=== PATIENT | male | born 1970 | race Caucasian/White ===

== ENCOUNTER 2018-03-14 03:25 | Emergency (ER) | payer OTHER ==
[~2018-03-14] VITALS: Ht 170.2 cm; Wt 77.1 kg
[~2018-03-14 03:25] MED LIST: ACET-2869 PO; CITA40TA13 PO; IBUP-2213 PO; OMEP20TC12 PO; ONDA4ODT1 PO; PANT40EC PO
[2018-03-14 03:34] VITALS: BP 112/66
--- NOTE | 2018-03-14 03:40 | NUR ---
TO BED # 5 AMBULATORY, REPORT GIVEN TO BRYAN [place].
--- NOTE | 2018-03-14 03:43 | NUR ---
REPORTED TO [place] AND SPOKEN TO [place]. [place] PD WILL COME AND SEE THE PATIENT.
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
--- NOTE | 2018-03-14 04:00 | NUR ---
[place] [employer] AT BEDSIDE
--- NOTE | 2018-03-14 04:03 | NUR ---
Dr. Dueñas evaluating patient at bedside.
[2018-03-14] MEDS ORDERED: LIDOCAINE/EPI MPF 2%1:200000 10 ML VIAL INJ ONE (04:45)
--- NOTE | 2018-03-14 05:12 | NUR ---
XRAY AT BEDSIDE. PT SENT TO CT VIA BED AAOX4 AT THIS TIME
--- NOTE | 2018-03-14 05:30 | NUR ---
PT BACK FROM CT TO ER BED 5 AAOX4
[2018-03-14] MEDS ORDERED: LIDOCAINE/EPI 2% 1:100000 20 ML VIAL INJ ONE (05:42)
--- NOTE | 2018-03-14 06:45 | NUR ---
Patient discharged with v/s stable. Written and verbal after care instructions given and explained. Patient alert, oriented and verbalized understanding of instructions. Ambulatory with steady gait. All questions addressed prior to discharge. ID band removed. Patient advised to follow up with PMD. Rx of ACETAMINOPHEN 500MG, BACITRACIN 500UNIT given. Patient educated on indication of medication including possible reaction and side effects. Opportunity to ask questions provided and answered.
[2018-03-14 06:46] VITALS: BP 123/42
== END 2018-03-14 06:45 | disposition home or self-care (01) ==
LOC: MED 03:25
DX: S01.01XA Laceration without foreign body of scalp, initial encounter (principal); S09.8XXA Other specified injuries of head, initial encounter; Y08.89XA Assault by other specified means, initial encounter; Y93.89 Activity, other specified; Y99.8 Other external cause status; Y92.512 Supermarket, store or market as the place of occurrence of the external cause
CPT/HCPCS: 12002; 70450; 99284; J2001

== ENCOUNTER 2018-03-16 13:09 | Emergency (ER) | payer OTHER ==
[~2018-03-16] VITALS: Ht 170.2 cm; Wt 77.1 kg
--- NOTE | 2018-03-16 13:09 | NUR ---
Patient BIBA BLS, transferred to bed 8. RN evaluating patient at bedside.
[2018-03-16 13:11] VITALS: BP 129/88
--- NOTE | 2018-03-16 13:15 | NUR ---
ASSUMED TEMPORARY CARE OF PT AT THIS TIME FOR PRIMARY RN WHO IS ON 30 MIN. BREAK. C/O SUDDEN ONSET LEFT UPPER CP AND ROSARIO X 1 HOUR. NO SOB. HEAVY ETOH TODAY. AAOX4; LUNGS CLEAR BL; HR EVEN AND REGULAR; PATIENT STATES PAIN OF 10/10; VSS; PATIENT POSITIONED FOR COMFORT; HOB ELEVATED; BEDRAILS UP X2; BED DOWN. ER MD MADE AWARE OF PT STATUS. WILL CONTINUE TO MONITOR.
[2018-03-16] MEDS ORDERED: NACL 0.9% 1,000 ML IV ONE (13:35)
[2018-03-16] MEDS ORDERED: MULTIVITAMIN-12 10 ML, THIAMINE 100 MG, MAGNESIUM SULFATE 50% 2,000 MG, FOLIC ACID 5 MG... IV ONE ×5 (13:35)
--- NOTE | 2018-03-16 13:51 | NUR ---
LAB AT PT BEDSIDE
--- NOTE | 2018-03-16 13:57 | NUR ---
roof technician at bedside.
[2018-03-16 13:58] LABS: HEMOGLOBIN 13.7 g/dL (12.0-18.0); MEAN CORPUSCULAR HEMOGLOBIN 31 pg (27-31); NEUTROPHILS # (AUTO) 4.1 K/uL (1.8-7.7)
[2018-03-16 14:11] LABS: ALBUMIN 3.7 g/dL (3.4-5.0); ANION GAP 15.3 (8-16); CARBON DIOXIDE 27.4 mmol/L (21-32); CREATININE 0.8 mg/dL (0.7-1.3); POTASSIUM 3.7 mmol/L (3.5-5.1); TOTAL BILIRUBIN 0.6 mg/dL (0.0-1.0)
[2018-03-16 14:12] LABS: BASOPHILS % (AUTO) 0.5 % (0.0-2.0); EOSINOPHILS % (AUTO) 0.8 % (0.0-4.0); HEMATOCRIT 39.3 % (36-52); LYMPHOCYTES # (AUTO) 0.7 K/uL (2.0-11.5); LYMPHOCYTES % (AUTO) 13.8 % (20.5-51.1); MEAN CORPUSCULAR HGB CONC 35 g/dL (33-37); MEAN CORPUSCULAR VOLUME 89.2 fL (80-94); MONOCYTES # (AUTO) 0.5 K/uL (0.8-1.0); MONOCYTES % (AUTO) 8.5 % (1.7-9.3); NEUTROPHILS % (AUTO) 76.4 % (42.2-75.2); PLATELET COUNT (AUTO) 133 K/uL (140-450); RED BLOOD CELL COUNT(AUTO) 4.41 MIL/uL (4.20-6.10); RED CELL DISTRIBUTION WIDTH 13.4 % (11.6-13.7); WHITE BLOOD COUNT (AUTO) 5.3 K/uL (4.8-10.8)
--- NOTE | 2018-03-16 14:14 | NUR ---
Patient appears to be resting comfortably in bed. Vital Signs within normal limits. Respirations even and unlabored.
--- NOTE | 2018-03-16 15:25 | NUR ---
URINE COLLECTED FROM PT
--- NOTE | 2018-03-16 15:26 | NUR ---
CALL LAB FOR URINE HAND GRINDER
--- NOTE | 2018-03-16 15:33 | NUR ---
PT TAKEN TO CT
[2018-03-16 15:35] LABS: APPEARANCE,URINE CLEAR (CLEAR); BILIRUBIN,URINE NEGATIVE (NEGATIVE); BLOOD, URINE NEGATIVE (NEGATIVE); COLOR,URINE YELLOW (YELLOW); LEUKOCYTE ESTERASE ,URINE NEGATIVE (NEGATIVE); NITRITE, URINE NEGATIVE (NEGATIVE); UGLUCOSE NEGATIVE (NEGATIVE)
[2018-03-16 15:42] LABS: BARBITURATE, URINE NEG. ng/ml (NEG <=200); BENZODIAZEPINE, URINE NEG. ng/mL (NEG <=200); CANNABINOID, URINE NEG. ng/mL (NEG <=50); COCAINE, URINE NEG. ng/mL (NEG <=300); OPIATE, URINE NEG. ng/mL (NEG <=2000); PHENCYCLIDINE SCREEN,URINE NEG. ng/mL (NEG <=25)
--- NOTE | 2018-03-16 15:45 | NUR ---
PT BACK FROM CT
[2018-03-16 19:18] VITALS: BP 128/86
== END 2018-03-16 19:18 | disposition home or self-care (01) ==
LOC: MED 13:09
DX: S20.212A Contusion of left front wall of thorax, initial encounter (principal); Y08.89XA Assault by other specified means, initial encounter; Y93.89 Activity, other specified; Y99.8 Other external cause status; Y92.89 Other specified places as the place of occurrence of the external cause
CPT/HCPCS: 36415; 71045; 71250; 80053; 80305; 81003; 83735; 84484; 85025; 93005; 96365; 96366; 99285; A9153; G0482; J3411; J3475; J3490; J7030

== ENCOUNTER 2019-09-28 23:46 | Emergency (ER) | payer OTHER ==
[~2019-09-28] VITALS: Ht 170.2 cm; Wt 81.6 kg
[~2019-09-28 23:46] MED LIST changes: -ACET-2869 PO; +HYDR-5122 PO; +ONDA-24 PO; -ONDA4ODT1 PO
[2019-09-28 23:50] VITALS: BP 123/80
[2019-09-29] MEDS: LORazepam 2 MG/ML VIAL IVP ONE (00:20)
[2019-09-29] MEDS: NACL 0.9% 1,000 ML IV ONE (00:20)
[2019-09-29 00:42] LABS: BASOPHILS % (AUTO) 0.2 % (0.0-2.0); EOSINOPHILS % (AUTO) 0.4 % (0.0-4.0); HEMATOCRIT 51.1 % (36-52); HEMOGLOBIN 17.3 g/dL (12.0-18.0); LYMPHOCYTES # (AUTO) 1.1 K/uL (2.0-11.5); LYMPHOCYTES % (AUTO) 13.6 % (20.5-51.1); MEAN CORPUSCULAR HEMOGLOBIN 31 pg (27-31); MEAN CORPUSCULAR HGB CONC 34 g/dL (33-37); MEAN CORPUSCULAR VOLUME 91.8 fL (80-94); MONOCYTES # (AUTO) 0.6 K/uL (0.8-1.0); MONOCYTES % (AUTO) 7.4 % (1.7-9.3); NEUTROPHILS # (AUTO) 6.6 K/uL (1.8-7.7); NEUTROPHILS % (AUTO) 78.4 % (42.2-75.2); PLATELET COUNT (AUTO) 194 K/uL (140-450); RED BLOOD CELL COUNT(AUTO) 5.57 MIL/uL (4.20-6.10); RED CELL DISTRIBUTION WIDTH 13.2 % (11.6-13.7); WHITE BLOOD COUNT (AUTO) 8.4 K/uL (4.8-10.8)
[2019-09-29 01:04] LABS: ALBUMIN 4.2 g/dL (3.4-5.0); ANION GAP 14.7 (8-16); ASPARTATE AMINOTRANSFERASE 19 U/L (15-37); CARBON DIOXIDE 26.5 mmol/L (21-32); CHLORIDE 106 mmol/L (98-107); CREATININE 1.2 mg/dL (0.7-1.3); GFR ARICAN-AMERICAN 83 mL/min (>90); GLUCOSE 119 mg/dL (74-106); POTASSIUM 3.2 mmol/L (3.5-5.1); SODIUM SERUM 144 mmol/L (136-145); TOTAL BILIRUBIN 0.9 mg/dL (0.0-1.0); UREA NITROGEN, BLOOD 12 mg/dL (7-18)
[2019-09-29 01:08] LABS: ACETAMINOPHEN < 0.5 ug/ml (10-30); SALICYLATE < 2.8 mg/dL (2.8-20.0)
[2019-09-29] MEDS: POTASSIUM CHLORIDE 10 MEQ TABER PO ONE (02:39)
[2019-09-29 02:54] VITALS: BP 120/84
== END 2019-09-29 02:54 | disposition home or self-care (01) ==
LOC: MED 23:46
DX: E87.6 Hypokalemia (principal); F15.10 Other stimulant abuse, uncomplicated; Z79.899 Other long term (current) drug therapy
CPT/HCPCS: 36415; 80053; 85025; 96361; 96374; 96375; 99283; G0480; G0482; J2060; J7030

== ENCOUNTER 2021-01-02 13:40 | Emergency (ER) | payer OTHER ==
[~2021-01-02] VITALS: Ht 170.2 cm; Wt 86.2 kg
[2021-01-02 13:44] VITALS: BP 119/81
--- NOTE | 2021-01-02 13:48 | NUR ---
PT AMBULATED TO ER BED 4 WITH A STEADY GAIT.
--- NOTE | 2021-01-02 13:52 | NUR ---
DR. MICHELLE AT PT BEDSIDE FOR FURTHER EVALUATION.
[2021-01-02] MEDS ORDERED: DICYCLOMINE HCL LIQUID 20 MG, ALUMINUM HYD/MAG/SIMETHICONE 30 ML, LIDOCAINE VISCOUS 2% ... PO ONE ×3 (13:55)
--- NOTE | 2021-01-02 14:00 | NUR ---
50 Y/O MALE C/O ABDOMINAL PAIN 03/02 DESCRIBES JOELLE THROUGHOUT ABDOMEN WITH +N/V X3 DAYS. PT DENIES DIARRHEA/CONSTIPATION. PT DENIES TAKING ANYTHING FOR PAIN. ABD IS SOFT, FLAT, NON-TENDER TO PALPATION, BOWEL SOUNDS ACTIVE X4. PMH:DEPRESSION NKA
[2021-01-02] MEDS ORDERED: PANT40EC PO (14:01)
[2021-01-02] MEDS ORDERED: LIDOCAINE VISCOUS 2% 20 ML UDC ONE (14:06)
[2021-01-02] MEDS ORDERED: DICYCLOMINE HCL LIQUID 10 MG/5 ML UDC ONE (14:07)
[2021-01-02] MEDS ORDERED: ALUMINUM HYD/MAG/SIMETHICONE 30 ML UDC ONE (14:07)
[2021-01-02 14:19] LABS: BASOPHILS % (AUTO) 0.2 % (0.0-2.0); EOSINOPHILS # (AUTO) 0.1 K/uL (0-0.4); EOSINOPHILS % (AUTO) 1.1 % (0.0-4.0); HEMATOCRIT 47.4 % (36-52); HEMOGLOBIN 16.2 g/dL (12.0-18.0); LYMPHOCYTES # (AUTO) 1.4 K/uL (2.0-11.5); LYMPHOCYTES % (AUTO) 23.2 % (20.5-51.1); MEAN CORPUSCULAR HEMOGLOBIN 31 pg (27-31); MEAN CORPUSCULAR HGB CONC 34 g/dL (33-37); MEAN CORPUSCULAR VOLUME 91.6 fL (80-94); MONOCYTES # (AUTO) 0.5 K/uL (0.8-1.0); MONOCYTES % (AUTO) 8.2 % (1.7-9.3); NEUTROPHILS # (AUTO) 4.2 K/uL (1.8-7.7); NEUTROPHILS % (AUTO) 67.3 % (42.2-75.2); PLATELET COUNT (AUTO) 185 K/uL (140-450); RED BLOOD CELL COUNT(AUTO) 5.17 MIL/uL (4.20-6.10); RED CELL DISTRIBUTION WIDTH 12.9 % (11.6-13.7); WHITE BLOOD COUNT (AUTO) 6.2 K/uL (4.8-10.8)
[2021-01-02 14:32] LABS: ALBUMIN 3.7 g/dL (3.4-5.0); ANION GAP 6.6 (8-16); CARBON DIOXIDE 30.1 mmol/L (21-32); CREATININE 0.9 mg/dL (0.6-1.3); POTASSIUM 3.7 mmol/L (3.5-5.1); TOTAL BILIRUBIN 0.6 mg/dL (0.0-1.0)
[2021-01-02 15:02] VITALS: BP 119/81
--- NOTE | 2021-01-02 15:03 | NUR ---
Patient discharged with v/s stable. Written and verbal after care instructions given and explained. Patient alert, oriented and verbalized understanding of instructions. Ambulatory with steady gait. All questions addressed prior to discharge. ID band removed. Patient advised to follow up with PMD. Rx of protonix 40mg po daily given. Patient educated on indication of medication including possible reaction and side effects. Opportunity to ask questions provided and answered.
== END 2021-01-02 15:03 | disposition home or self-care (01) ==
LOC: MED 13:40
DX: K29.70 Gastritis, unspecified, without bleeding (principal); F10.129 Alcohol abuse with intoxication, unspecified
CPT/HCPCS: 36415; 80053; 83690; 85025; 99283

== ENCOUNTER 2021-01-29 23:57 | Emergency (ER) | payer OTHER ==
[~2021-01-29] VITALS: Ht 177.8 cm; Wt 77.1 kg
[2021-01-30 00:04] VITALS: BP 137/90
--- NOTE | 2021-01-30 00:04 | NUR ---
TO BED AMBULATORY
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
--- NOTE | 2021-01-30 00:45 | NUR ---
LAB AT BEDSIDE
[2021-01-30 00:58] LABS: BASOPHILS % (AUTO) 0.3 % (0.0-2.0); EOSINOPHILS # (AUTO) 0.1 K/uL (0-0.4); EOSINOPHILS % (AUTO) 1.8 % (0.0-4.0); HEMATOCRIT 45.8 % (36-52); LYMPHOCYTES # (AUTO) 1.9 K/uL (2.0-11.5); MEAN CORPUSCULAR HEMOGLOBIN 32 pg (27-31); MEAN CORPUSCULAR HGB CONC 35 g/dL (33-37); MEAN CORPUSCULAR VOLUME 90.1 fL (80-94); MONOCYTES # (AUTO) 0.7 K/uL (0.8-1.0); MONOCYTES % (AUTO) 10.4 % (1.7-9.3); NEUTROPHILS # (AUTO) 3.8 K/uL (1.8-7.7); NEUTROPHILS % (AUTO) 58.5 % (42.2-75.2); PLATELET COUNT (AUTO) 202 K/uL (140-450); RED BLOOD CELL COUNT(AUTO) 5.08 MIL/uL (4.20-6.10); RED CELL DISTRIBUTION WIDTH 13.1 % (11.6-13.7); WHITE BLOOD COUNT (AUTO) 6.4 K/uL (4.8-10.8)
--- NOTE | 2021-01-30 01:13 | NUR ---
Patient being evaluated by physician at bedside.
[2021-01-30 01:16] LABS: ALBUMIN 4.1 g/dL (3.4-5.0); ANION GAP 10.8 (8-16); CARBON DIOXIDE 29.7 mmol/L (21-32); CREATININE 0.7 mg/dL (0.6-1.3); POTASSIUM 3.5 mmol/L (3.5-5.1)
[2021-01-30 02:39] LABS: BARBITURATE, URINE NEGATIVE ng/ml (NEG <=200); BENZODIAZEPINE, URINE NEGATIVE ng/mL (NEG <=200); CANNABINOID, URINE NEGATIVE ng/mL (NEG <=50); COCAINE, URINE NEGATIVE ng/mL (NEG <=300); OPIATE, URINE NEGATIVE ng/mL (NEG <=2000); PHENCYCLIDINE SCREEN,URINE NEGATIVE ng/mL (NEG <=25)
--- NOTE | 2021-01-30 03:11 | NUR ---
PER TELEPSYCH REQUEST INITIATED;[facility] ID [id number]
--- NOTE | 2021-01-30 04:00 | NUR ---
TELEPSYCH CALLED BUT [place] ISSUES ARISED. ASSISTANT ATTORNEY GENERAL SAID SHE WILL CALL BACK AGAIN. AWAITING CALL.
--- NOTE | 2021-01-30 04:30 | NUR ---
VS STABLE. RESTING COMFORTABLY IN BED. PT DENIES ANY PAIN OR DISCOMFORT AT THIS TIME. NO REQUESTS MADE. PT KEPT COMFORTABLE, SAFETY MEASURES IN PLACE, WILL CONTINUE TO MONITOR.
--- NOTE | 2021-01-30 06:02 | NUR ---
TELEPSYCH PHYSICIAN CALLED; CALL TRANSFERED TO SHU CALDERA AT THIS TIME.
--- NOTE | 2021-01-30 06:10 | NUR ---
RECEIVED CALL FROM DR ROUSE. VIDEO NOT WORKING DESPITE REBOOTING. UNABLE TO PERFORM TELEPSYCH ASSESSMENT.
--- NOTE | 2021-01-30 07:38 | NUR ---
Dr. Solano is evaluating the patient via telepsychiatry.
--- NOTE | 2021-01-30 07:38 | NUR ---
telepsych with patient.
--- NOTE | 2021-01-30 08:22 | NUR ---
dr. lovelace telepsychiatry finished speaking with patient with the aide of sheet metal worker maintenance [facility] #[id number]
[2021-01-30] MEDS ORDERED: CITA20TA15 PO (09:47)
--- NOTE | 2021-01-30 09:55 | NUR ---
Patient discharged with v/s stable. Written and verbal after care instructions given and explained. Patient alert, oriented and verbalized understanding of instructions. Ambulatory with steady gait. All questions addressed prior to discharge. ID band removed. Patient advised to follow up with PMD. Rx of CELEXA given. Patient educated on indication of medication including possible reaction and side effects. Opportunity to ask questions provided and answered.
[2021-01-30 09:56] VITALS: BP 116/69
== END 2021-01-30 09:55 | disposition home or self-care (01) ==
LOC: MED 01-30
DX: R45.851 Suicidal ideations (principal); Z20.822 Contact with and (suspected) exposure to COVID-19; F15.90 Other stimulant use, unspecified, uncomplicated; F17.210 Nicotine dependence, cigarettes, uncomplicated; Z79.899 Other long term (current) drug therapy
CPT/HCPCS: 36415; 80053; 80305; 85025; 87426; 93005; 99284; G0482; U0003